=== PATIENT | male | born 1985 | race Two or more races ===

== ENCOUNTER → 2024-12-05 09:03 | Outpatient (REF) | payer OTHER, SELFPAY | LOC: PAVMRI 09:03 | PROVIDERS: ATTENDING PHYSICIAN Physical Medicine & Rehabilitation | DX: M54.16 Radiculopathy, lumbar region (principal); M54.12 Radiculopathy, cervical region | CPT/HCPCS: 72141; 72148 ==

== ENCOUNTER → 2024-12-30 13:54 | Outpatient (REF) | payer OTHER, SELFPAY | LOC: EMG 13:54 | PROVIDERS: ATTENDING PHYSICIAN Physical Medicine & Rehabilitation | DX: M54.12 Radiculopathy, cervical region (principal); R20.0 Anesthesia of skin | CPT/HCPCS: 95886; 95911 ==